=== PATIENT | male | born 1985 | race African-American/Black ===

== ENCOUNTER 2017-12-04 11:05 | Emergency (ER) | payer SELFPAY ==
[~2017-12-04] VITALS: Ht 182.9 cm; Wt 77.3 kg
[~2017-12-04 11:05] MED LIST: BACTRIM DS 8001 TAB PO; CLEOCIN HC150 MG/CAP PO; NO HOME MEDICATIONS; NORCO 325 MG-7.1 TAB PO; ULTRAM 50MG TAB50 MG PO
[2017-12-04 11:07] VITALS: BP 129/78; PULSE 63; TEMP 97
[2017-12-04] MEDS ORDERED: CLEOCIN HC150 MG/CAP PO (11:25)
[2017-12-04] MEDS ORDERED: NORCO 325 MG-51 TAB PO (11:25)
== END 2017-12-04 11:31 | disposition home or self-care (01) ==
LOC: COL.ER 11:05
DX: K02.9 Dental caries, unspecified (principal); R68.84 Jaw pain

== ENCOUNTER 2017-12-17 23:18 | Emergency (ER) | payer SELFPAY ==
[~2017-12-17] VITALS: Ht 182.9 cm; Wt 75.5 kg
[~2017-12-17 23:18] MED LIST changes: +NORCO 325 MG-51 TAB PO
[2017-12-17 23:20] VITALS: BP 135/89; TEMP 97.5
[2017-12-18 00:41] VITALS: PULSE 78
== END 2017-12-18 00:42 | disposition home or self-care (01) ==
LOC: COL.ER 23:18
DX: K02.9 Dental caries, unspecified (principal); F17.210 Nicotine dependence, cigarettes, uncomplicated

== ENCOUNTER 2018-04-03 08:21 | Emergency (ER) | payer SELFPAY ==
[~2018-04-03] VITALS: Ht 180.3 cm; Wt 75.0 kg
[2018-04-03 08:24] VITALS: BP 130/83; TEMP 97.3
[2018-04-03 09:23] LABS: ALANINE AMINOTRANSFERASE 21 U/L (21-72); ALBUMIN 3.8 gm/dL (3.5-5.0); ALKALINE PHOSPHATASE 68 U/L (50-136); ANION GAP 9 mmol/L (7-16); AST,SGOT 22 U/L (15-37); BASO % 0.2 % (0.0-2.0); BILIRUBIN,TOTAL 0.6 mg/dL (0.0-1.0); BLOOD UREA NITROGEN 11 mg/dL (9-20); CALCIUM 9.1 mg/dL (8.4-10.2); CARBON DIOXIDE 24 mmol/L (22-30); CHLORIDE 106 mmol/L (98-107); EOS # 0.1 (0.0-0.7); EOS % 1.2 % (0-4.0); GLUCOSE 100 mg/dL (74-106); GRAN # 2.2 (1.4-6.5); HEMATOCRIT 40.6 % (42.0-52.0); HEMOGLOBIN 13.8 g/dl (13.5-18.0); LIPASE 18 U/L (23-300); LYMPH # 1.5 (1.2-3.4); LYMPH % 36.5 % (20.0-51.0); MEAN CELL VOLUME 102 fl (80.0-100.0); MEAN CORPUSCULAR HEMOGLOBIN 35 pg (27.0-31.0); MEAN CORPUSCULAR HGB CONC 34 g/dl (33.0-37.0); MEAN PLATELET VOLUME 10.4 fl (7.4-10.4); MONO # 0.4 (0.1-0.6); MONO % 9.1 % (1.7-9.3); PLATELET COUNT 189 K/mm3 (130-400); POTASSIUM 3.9 mmol/L (3.4-5.0); RED BLOOD COUNT 3.99 M/mm3 (4.20-5.60); REDCELL DISTRIBUTION WIDTH-CV 11.1 % (11.5-14.5); SODIUM 139 mmol/L (137-145); TOTAL PROTEIN 7.4 gm/dL (6.4-8.2)
[2018-04-03 09:30] LABS: COLLECTION METHOD CLEAN CATCH
[2018-04-03 09:32] LABS: C-REACTIVE PROTEIN < 0.5 mg/dL (0.0-0.9)
[2018-04-03 09:44] LABS: MUCOUS Present /lpf; PH 6 (5-8); SQUAMOUS EPITHELIAL 0-2 /hpf; URINE APPEARANCE Clear; URINE BACTERIA None Seen /hpf; URINE BILIRUBIN Negative (NEGATIVE); URINE BLOOD Negative (NEGATIVE); URINE COLOR Yellow; URINE GLUCOSE Negative (NEGATIVE); URINE KETONE Negative (NEGATIVE); URINE LEUKOCYTE ESTERASE Trace (NEGATIVE); URINE NITRATE Negative (NEGATIVE); URINE PROTEIN(semi-quant) Negative (NEGATIVE)
[2018-04-03] MEDS ORDERED: ZOFRAN ODT4 MG PO (10:55)
[2018-04-03 11:17] VITALS: PULSE 57
== END 2018-04-03 11:17 | disposition home or self-care (01) ==
LOC: COL.ER 08:21
PROVIDERS: Physician Assistant
DX: K52.9 Noninfective gastroenteritis and colitis, unspecified (principal)
CPT/HCPCS: J1885; J2405; J7030

== ENCOUNTER 2020-07-21 17:12 | Emergency (ER) | payer BC ==
[~2020-07-21] VITALS: Ht 182.9 cm; Wt 70.5 kg
[~2020-07-21 17:12] MED LIST changes: +ZOFRAN ODT4 MG PO
[2020-07-21 17:22] VITALS: TEMP 98.3
[2020-07-21] MEDS ORDERED: CLEOCIN HCL300 MG PO (18:01)
[2020-07-21 18:50] VITALS: BP 132/71; PULSE 79
== END 2020-07-21 18:40 | disposition home or self-care (01) ==
LOC: COL.ER 17:12
DX: K02.9 Dental caries, unspecified (principal); K04.7 Periapical abscess without sinus

== ENCOUNTER 2021-07-14 19:41 | Emergency (ER) | payer SELFPAY ==
[~2021-07-14] VITALS: Ht 182.9 cm; Wt 77.3 kg
[~2021-07-14 19:41] MED LIST changes: +CLEOCIN HCL300 MG PO
[2021-07-14 19:54] VITALS: TEMP 98.2
[2021-07-14 21:57] VITALS: BP 122/87; PULSE 61
== END 2021-07-14 21:58 | disposition home or self-care (01) ==
LOC: COL.ER 19:41
DX: B34.9 Viral infection, unspecified (principal); Z20.822 Contact with and (suspected) exposure to COVID-19